=== PATIENT | female | born 1935 | race African-American/Black ===

== ENCOUNTER 2018-08-28 15:46 | Inpatient (IN) | payer MEDICARE, BC ==
[~2018-08-28] VITALS: Ht 165.1 cm; Wt 60.8 kg
[2018-08-28 16:48] LABS: BASOPHILS % 0.5 % (0.0-2.0); EOSINOPHILS % 0.7 % (0.0-5.0); HEMATOCRIT. 33.8 % (36.0-48.0); LYMPHOCYTES % 28.4 % (20.0-50.0); MEAN CORPUSCULAR HEMOGLOBIN 27.2 pg (28.0-32.0); MEAN CORPUSCULAR VOLUME 83.6 fL (81.0-99.0); MEAN PLATELET VOLUME 9.9 fl (7.4-10.4); MONOCYTES % 6.9 % (2.0-8.0); NEUTROPHILS % 63.5 % (40.0-76.0); PLATELET 233 x1000/uL (130-400); RED BLOOD CELL COUNT 4.04 mill/uL (4.2-5.4); RED CELL DISTRIBUTION WIDTH 17.7 % (11.6-14.6)
[2018-08-28 16:53] LABS: INR 1.2
[2018-08-28 16:57] LABS: CHLORIDE 105 mEq/L (98-107)
[2018-08-28 17:05] LABS: CREATINE KINASE 67 IU/L (26-192)
[2018-08-28] MEDS ORDERED: ASPIRIN 325MG EC TABLET PO ONE (18:30)
[2018-08-28 18:35] LABS: CLARITY URINE CLEAR (CLEAR); COLOR URINE YELLOW (YELLOW); KETONES URINE NEGATIVE (NEGATIVE); LEUKOCYTE ESTERASE URINE 1+ (NEGATIVE); NITRITE URINE NEGATIVE (NEGATIVE); OCCULT BLOOD URINE NEGATIVE (NEGATIVE); PROTEIN URINE NEGATIVE (NEGATIVE); SPECIFIC GRAVITY URINE 1.004 (1.005-1.030); UROBILINOGEN URINE 0.2 E.U./dL (0.2-1.0)
[2018-08-28] MEDS ORDERED: NITROGLYCERIN 0.4MG TABLET SL SL PRN (19:00)
[2018-08-28] MEDS ORDERED: MAGNESIUM/ALUMINUM HYDROXIDE/SIMETHICONE 30ML UDC PO PRN (19:00)
[2018-08-28] MEDS ORDERED: TRAMADOL 50MG TABLET PO PRN (19:00)
[2018-08-28] MEDS ORDERED: DEXTROSE 50% WATER 50ML SYRINGE IV PRN (19:00)
[2018-08-28] MEDS ORDERED: DIPHENHYDRAMINE 50MG/ML VIAL IV PRN (19:00)
[2018-08-28] MEDS ORDERED: IPRATROPIUM/ALBUTEROL 0.5-3(2.5)MG/3ML NEB INH PRN (19:00)
[2018-08-28] MEDS ORDERED: ACETAMINOPHEN 325MG TABLET PO PRN (19:00)
[2018-08-28] MEDS ORDERED: NA PHOS,M-B/NA PHOS,DI-BA ENEMA 118ML PR PRN (19:00)
[2018-08-28] MEDS ORDERED: ONDANSETRON HCL 4MG/2ML INJ IV PRN (19:00)
[2018-08-28] MEDS ORDERED: GUAIFENESIN 200MG/10ML SUGAR FREE UDC PO PRN (19:00)
[2018-08-28] MEDS ORDERED: CLONIDINE 0.1MG TABLET PO PRN (19:00)
[2018-08-28] MEDS ORDERED: DOCUSATE SODIUM 100MG CAPSULE PO PRN (19:00)
[2018-08-28] MEDS ORDERED: ZOLPIDEM TARTRATE 5MG TABLET PO PRN (19:00)
[2018-08-28 20:40] LABS: T4 FREE 1.02 ng/dL (0.76-1.46)
[2018-08-28] MEDS: BLOOD SUGAR DIAGNOSTIC STRIP TEST SCH (21:00)
[2018-08-28] MEDS: INSULIN LISPRO 100 UNITS/ML SUBCUT SCH (21:00)
[2018-08-28 21:02] LABS: VITAMIN B12 SERUM 339 pg/mL (211-911)
[2018-08-28 21:03] LABS: FOLIC ACID (FOLATE) SERUM > 20.00 ng/mL (>5.38)
[2018-08-28] MEDS ORDERED: ENOXAPARIN 40MG/0.4ML SYR SUBCUT SCH (21:06)
[2018-08-28 22:00] VITALS: BP 146/68
[2018-08-28] MEDS ORDERED: AMLO5TAB88 PO (23:10)
[2018-08-28] MEDS ORDERED: METF-416 PO (23:10)
[2018-08-28] MEDS: ASCORBIC ACID 500 MG TABLET PO SCH (23:21)
[2018-08-28] MEDS: FAMOTIDINE 20MG TABLET PO SCH (23:21)
[2018-08-28] MEDS: LISINOPRIL 20MG TABLET PO SCH (23:21)
[2018-08-28 23:56] LABS: CREATINE KINASE 60 IU/L (26-192); CREATINE KINASE MB FRACTION < 1.0 ng/mL (0.5-3.6)
[2018-08-29] VITALS: BP 133/70
[2018-08-29 04:00] VITALS: BP 145/76
[2018-08-29] MEDS: BLOOD SUGAR DIAGNOSTIC STRIP TEST SCH (06:08)
[2018-08-29] MEDS: INSULIN LISPRO 100 UNITS/ML SUBCUT SCH (06:08)
[2018-08-29 07:55] LABS: CREATINE KINASE 58 IU/L (26-192); CREATINE KINASE MB FRACTION < 1.0 ng/mL (0.5-3.6)
[2018-08-29 08:00] VITALS: BP 160/73
[2018-08-29 08:02] LABS: *AMPHETAMINES SCREEN URINE NEGATIVE (NEGATIVE); *BARBITURATES SCREEN URINE NEGATIVE (NEGATIVE); *BENZODIAZEPINES SCREEN URINE NEGATIVE (NEGATIVE); *COCAINE SCREEN URINE NEGATIVE (NEGATIVE); METHADONE URINE SCREEN NEGATIVE (NEGATIVE); OPIATES URINE SCREEN NEGATIVE (NEGATIVE)
[2018-08-29 08:03] LABS: CANNABINOID URINE SCREEN NEGATIVE (NEGATIVE); PHENCYCLIDINE URINE SCREEN NEGATIVE (NEGATIVE)
[2018-08-29] MEDS: LISINOPRIL 20MG TABLET PO SCH (08:53)
[2018-08-29] MEDS: FAMOTIDINE 20MG TABLET PO SCH (08:55)
[2018-08-29] MEDS: ASCORBIC ACID 500 MG TABLET PO SCH (08:55)
[2018-08-29] MEDS ORDERED: ZINC SULFATE 220 MG ( 50 ) CAPSULE PO SCH (09:00)
[2018-08-29] MEDS ORDERED: ASPIRIN 325MG EC TABLET PO SCH (09:00)
[2018-08-29 11:36] VITALS: BP 160/73
[2018-08-29 12:00] VITALS: BP 173/89
== END 2018-08-29 12:12 | disposition home health service (06) | DRG 69 ==
LOC: ER 16:38 → 7WST 18:08 → EDBEDREQ 18:10 → SUPCPDRO 18:52 → ENRESERV 19:45
PROVIDERS: ADMIT Internal Medicine; ATTEND Internal Medicine
DX: G45.9 Transient cerebral ischemic attack, unspecified (principal); D63.8 Anemia in other chronic diseases classified elsewhere; E11.9 Type 2 diabetes mellitus without complications; E78.00 Pure hypercholesterolemia, unspecified; I10 Essential (primary) hypertension; Z79.4 Long term (current) use of insulin
CPT/HCPCS: 36415; 70551; 71045; 80061; 80305; 82550; 82553; 82607; 82746; 82962; 83036; 83605; 84439; 84443; 84484; 85379; 93005; 93970; 96372; 97162; 97165; 99285; J1650

== ENCOUNTER 2018-08-30 17:19 | Inpatient (IN) | payer MEDICARE, BC ==
[~2018-08-30] VITALS: Ht 152.4 cm; Wt 63.5 kg
[~2018-08-30 17:19] MED LIST: AMLO5TAB88 PO; METF-416 PO
[2018-08-30] MEDS ORDERED: SODIUM CHLORIDE 0.9% 1,000 ML IV ONE (18:36)
[2018-08-30 19:51] LABS: CHLORIDE 102 mEq/L (98-107)
[2018-08-30 19:52] LABS: BASOPHILS % 1.3 % (0.0-2.0); EOSINOPHILS % 2.4 % (0.0-5.0); HEMATOCRIT. 35.8 % (36.0-48.0); HEMOGLOBIN. 11.7 g/dL (12.0-16.0); LYMPHOCYTES % 37.6 % (20.0-50.0); MEAN CORPUSCULAR HEMOGLOBIN 27.3 pg (28.0-32.0); MEAN CORPUSCULAR VOLUME 83.8 fL (81.0-99.0); MEAN PLATELET VOLUME 10.4 fl (7.4-10.4); MONOCYTES % 9.1 % (2.0-8.0); NEUTROPHILS % 49.6 % (40.0-76.0); PLATELET 260 x1000/uL (130-400); RED BLOOD CELL COUNT 4.27 mill/uL (4.2-5.4); RED CELL DISTRIBUTION WIDTH 17.5 % (11.6-14.6)
[2018-08-30 19:53] LABS: INR 1.2; PROTHROMBIN TIME 11.8 sec (9.1-11.1)
[2018-08-30] MEDS ORDERED: IOHEXOL-350 100 ML BOTTLE ONE (20:20)
[2018-08-30] MEDS ORDERED: ASPIRIN 325MG EC TABLET PO ONE (20:30)
[2018-08-30] MEDS ORDERED: CLONIDINE 0.1MG TABLET PO PRN (21:30)
[2018-08-30] MEDS ORDERED: ACETAMINOPHEN 325MG TABLET PO PRN (21:30)
[2018-08-30] MEDS ORDERED: NA PHOS,M-B/NA PHOS,DI-BA ENEMA 118ML PR PRN (21:30)
[2018-08-30] MEDS ORDERED: DOCUSATE SODIUM 100MG CAPSULE PO PRN (21:30)
[2018-08-30] MEDS ORDERED: MAGNESIUM/ALUMINUM HYDROXIDE/SIMETHICONE 30ML UDC PO PRN (21:30)
[2018-08-30] MEDS ORDERED: ACETAMINOPHEN 650MG/20.3ML UDC GT PRN (21:30)
[2018-08-30] MEDS ORDERED: DEXTROSE 50% WATER 50ML SYRINGE IV PRN (21:30)
[2018-08-30] MEDS ORDERED: GUAIFENESIN 200MG/10ML SUGAR FREE UDC PO PRN (21:30)
[2018-08-30] MEDS ORDERED: ONDANSETRON HCL 4MG/2ML INJ IV PRN (21:30)
[2018-08-30] MEDS ORDERED: IPRATROPIUM/ALBUTEROL 0.5-3(2.5)MG/3ML NEB INH PRN (21:30)
[2018-08-30] MEDS ORDERED: ACETAMINOPHEN 650MG SUPP PR PRN (21:30)
[2018-08-31 04:00] VITALS: BP 164/68
[2018-08-31] MEDS ORDERED: INSU100I28 SQ (04:22)
[2018-08-31] MEDS ORDERED: OLME40TA11 MT (04:22)
[2018-08-31] MEDS: SODIUM CHLORIDE 0.9% INJ 3ML FLUSH IVF SCH ×3 (06:07→22:56)
[2018-08-31] MEDS: BLOOD SUGAR DIAGNOSTIC STRIP TEST SCH ×4 (06:18→21:00)
[2018-08-31] MEDS: INSULIN LISPRO 100 UNITS/ML SUBCUT SCH ×4 (06:52→20:59)
[2018-08-31 08:08] VITALS: BP 139/58
[2018-08-31] MEDS ORDERED: ASPIRIN 81MG EC TABLET PO SCH (09:00)
[2018-08-31 11:35] LABS: EOSINOPHILS % 2.3 % (0.0-5.0); HEMATOCRIT. 32.8 % (36.0-48.0); HEMOGLOBIN. 10.7 g/dL (12.0-16.0); LYMPHOCYTES % 21.2 % (20.0-50.0); MEAN CORPUSCULAR HEMOGLOBIN 27.3 pg (28.0-32.0); MEAN CORPUSCULAR VOLUME 83.9 fL (81.0-99.0); MEAN PLATELET VOLUME 10.7 fl (7.4-10.4); MONOCYTES % 9.4 % (2.0-8.0); NEUTROPHILS % 66.1 % (40.0-76.0); PLATELET 216 x1000/uL (130-400); RED BLOOD CELL COUNT 3.91 mill/uL (4.2-5.4); RED CELL DISTRIBUTION WIDTH 17.1 % (11.6-14.6)
[2018-08-31 11:49] LABS: CHLORIDE 107 mEq/L (98-107)
[2018-08-31 11:54] LABS: HDL CHOLESTEROL 38 mg/dL (40-59); LDL CHOLESTEROL 73 mg/dL (5-100)
[2018-08-31 12:00] VITALS: BP 145/64
[2018-08-31] MEDS ORDERED: ASPIRIN 81MG TABLET PO ONE (12:15)
[2018-08-31] MEDS: CLOPIDOGREL 75MG TABLET PO SCH (14:54)
[2018-08-31 16:00] VITALS: BP 152/63
[2018-08-31 20:00] VITALS: BP 151/77
[2018-08-31] MEDS ORDERED: ATORVASTATIN CALCIUM 10MG TABLET PO SCH (21:00)
[2018-09-01] VITALS: BP 150/61
[2018-09-01 04:00] VITALS: BP 147/68
[2018-09-01] MEDS: SODIUM CHLORIDE 0.9% INJ 3ML FLUSH IVF SCH ×2 (06:00→14:00)
[2018-09-01] MEDS: BLOOD SUGAR DIAGNOSTIC STRIP TEST SCH ×2 (06:46→11:58)
[2018-09-01] MEDS: INSULIN LISPRO 100 UNITS/ML SUBCUT SCH ×2 (06:46→11:58)
[2018-09-01 08:00] VITALS: BP 149/69
[2018-09-01] MEDS ORDERED: ASPIRIN 81MG TABLET PO SCH (09:00)
[2018-09-01] MEDS ORDERED: DIVALPROEX SODIUM 500MG ER TABLET PO SCH (09:00)
[2018-09-01] MEDS: CLOPIDOGREL 75MG TABLET PO SCH (09:10)
[2018-09-01 12:00] VITALS: BP 151/59
[2018-09-01 14:18] VITALS: BP 151/59
== END 2018-09-01 16:00 | disposition home or self-care (01) | DRG 69 ==
LOC: ER 17:19 → 8WST 20:54 → EDBEDREQ 20:57 → EDBEDREQTM 20:57 → ENRESERV 08-31 02:02
PROVIDERS: ADMIT Family Medicine; ATTEND Family Medicine
DX: G45.9 Transient cerebral ischemic attack, unspecified (principal); R56.9 Unspecified convulsions; D63.8 Anemia in other chronic diseases classified elsewhere; I10 Essential (primary) hypertension; E11.9 Type 2 diabetes mellitus without complications; E04.1 Nontoxic single thyroid nodule; Z79.899 Other long term (current) drug therapy; Z90.710 Acquired absence of both cervix and uterus
CPT/HCPCS: 36415; 70496; 70498; 70551; 71045; 80061; 82962; 83036; 84443; 84484; 93005; 93306; 93880; 97162; 97166; 99291; J1815; J7030; Q9967